=== PATIENT | male | born 1970 | race Caucasian/White ===

== ENCOUNTER 2018-08-10 19:49 | Emergency (ER) | payer BC ==
[2018-08-10 20:05] VITALS: BP 174/100
[2018-08-10] MEDS ORDERED: Azithromycin TAB* 250 MG PO ONE (20:40)
--- NOTE | 2018-08-10 20:45 | UC ---
Throat Pain/Nasal Aidan HPI - HPI Summary HPI Summary: Patient has had left sinus pressure that has occurred over the last 36 hours. it is burning and pain behind the eye, lots of post nasal drip - History of Current Complaint Chief Complaint: UCRespiratory Stated Complaint: SINUS COMPLAINT Time Seen by Provider: 08/10/18 20:03 Hx Obtained From: Patient Onset/Duration: Sudden Onset Severity: Mild Pain Intensity: 3 Associated Signs & Symptoms: Positive: Dysphagia, Sinus Discomfort, Nasal Discharge - Allergies/Home Medications Allergies/Adverse Reactions: Allergies Allergy/AdvReac Type Severity Reaction Status Date / Time Penicillins Allergy Unknown Verified 08/10/18 20:06 Reaction Details Home Medications: Home Medications D-Methorphan/PE/Acetaminophen [Day Time Cold-Flu Liquid] 355 ml PO DAILY [History Confirmed 08/10/18] Rabeprazole Sodium [Aciphex Sprinkle] 10 mg PO DAILY 08/10/18 [History Confirmed 08/10/18] amLODIPine TAB* [Norvasc 5 mg TAB*] 5 mg PO DAILY 08/10/18 [History Confirmed ] PMH/Surg Hx/FS Hx/Imm Hx Previously Healthy: Yes - Surgical History Surgical History: Yes Surgery Procedure, Year, and Place: shoulder surgery 2016 - Family History Known Family History: Positive: Hypertension - Social History Alcohol Use: None Substance Use Type: None Smoking Status (MU): Never Smoked Tobacco Review of Systems All Other Systems Reviewed And Are Negative: Yes Constitutional: Positive: Negative Skin: Positive: Negative Eyes: Positive: Negative ENT: Positive: Sore Throat, Ear Ache, Nasal Discharge, Sinus Congestion, Sinus Pain/Tenderness Respiratory: Positive: Cough Cardiovascular: Positive: Negative Gastrointestinal: Positive: Negative Genitourinary: Positive: Negative Motor: Positive: Negative Neurovascular: Positive: Negative Musculoskeletal: Positive: Negative Neurological: Positive: Headache Psychological: Positive: Negative Is Patient Immunocompromised?: No Physical Exam Triage Information Reviewed: Yes Appearance: Well-Nourished, Ill-Appearing, Pain Distress Vital Signs: Initial Vital Signs Temp 98.6 F 08/10/18 20:02 Pulse 102 08/10/18 20:02 Resp 16 08/10/18 20:02 BP 174/100 08/10/18 20:02 Pulse Ox 98 08/10/18 20:02 Vital Signs Reviewed: Yes Eye Exam: Normal ENT: Positive: Pharyngeal erythema - with PND, Nasal congestion, TM red Dental Exam: Normal Neck exam: Normal Respiratory Exam: Normal Respiratory: Positive: Chest non-tender, Lungs clear, Normal breath sounds Cardiovascular Exam: Normal Cardiovascular: Positive: RRR, No Murmur, Pulses Normal Abdominal Exam: Normal Abdomen Description: Positive: Nontender, No Organomegaly, Soft Musculoskeletal Exam: Normal Neurological Exam: Normal Psychological Exam: Normal Skin Exam: Normal Throat Pain/Nasal Course/Dx - Course Course Of Treatment: hx obtained,e victorinam performed ,meds reviewed, treated for sinusitis - Differential Dx/Diagnosis Provider Diagnosis: Frontal sinusitis Discharge - Sign-Out/Discharge Documenting (check all that apply): Patient Departure All imaging exams completed and their final reports reviewed: No Studies - Discharge Plan Condition: Stable Disposition: HOME Prescriptions: Azithromycin TAB* [Zithromax TAB (Z-ESTELLE) 250 mg #6 tabs] 250 mg PO DAILY #4 tab predniSONE [Prednisone 20 MG TAB] 40 mg PO DAILY #10 tablet Patient Education Materials: Sinusitis (ED) Referrals: No Primary Care Phys,NOPCP [Primary Care Provider] - Additional Instructions: 1. take the medication as prescribed 2. Warm compresses to the sinus area 3. Ibuprofen for pain and fever 4. Follow up if not improving in a week. - Billing Disposition and Condition Condition: STABLE Disposition: Home - Attestation Statements Provider Attestation: Per institutional requirements, I have reviewed the chart, however, I was not consulted specifically or made aware of this patient by the midlevel provider. I did not personally evaluate, interact with , or disposition this patient.
== END 2018-08-10 20:52 | disposition home or self-care (01) ==
LOC: UCCORT 19:49
DX: J32.1 Chronic frontal sinusitis (principal); Z88.0 Allergy status to penicillin
CPT/HCPCS: 99202; A9270-GY; G0463

== ENCOUNTER 2018-12-26 19:16 | Emergency (ER) | payer BC ==
[2018-12-26 19:38] VITALS: BP 158/88
--- NOTE | 2018-12-26 20:08 | ED ---
Throat Pain/Nasal Congestion - HPI Summary HPI Summary: 48 yr old male with the complaint of runny nose, post nasal drip, sinus pressure , sore throat and cough. He has been ill for four days. He was exposed to dust at an automotive garage, and feels that this caused his sinus infection. He has no other complaints. - History of Current Complaint Chief Complaint: UCRespiratory Time Seen by Provider: 12/26/18 20:00 - Allergies/Home Medications Allergies/Adverse Reactions: Allergies Allergy/AdvReac Type Severity Reaction Status Date / Time Penicillins Allergy Unknown Verified 12/26/18 19:34 Reaction Details Home Medications: Home Medications Ibs Med 1 tab DAILY 12/26/18 [History Confirmed 12/26/18] PMH/Surg Hx/FS Hx/Imm Hx Cardiovascular History: Reports: Hx Hypertension - Surgical History Surgery Procedure, Year, and Place: shoulder surgery 2016 Infectious Disease History: No Infectious Disease History: Denies: Traveled Outside the [place] in Last 30 Days - Family History Known Family History: Positive: Hypertension - Social History Occupation: Employed Full-time Alcohol Use: None Substance Use Type: Reports: None Smoking Status (MU): Never Smoked Tobacco Review of Systems Negative: Fever, Chills Positive: Nasal Discharge Positive: Cough All Other Systems Reviewed And Are Negative: Yes Physical Exam Triage Information Reviewed: Yes Vital Signs On Initial Exam: Initial Vitals Temp Pulse Resp BP Pulse Ox 99.2 F 108 18 158/88 98 12/26/18 19:35 12/26/18 19:35 12/26/18 19:35 12/26/18 19:35 12/26/18 19:35 Vital Signs Reviewed: Yes Appearance: Positive: Well-Appearing, No Pain Distress Skin: Positive: Warm, Skin Color Reflects Adequate Perfusion Head/Face: Positive: Normal Head/Face Inspection Eyes: Positive: EOMI, NAEL ENT: Positive: Nasal congestion, Nasal drainage, TMs normal, Sinus tenderness. Negative: Pharyngeal erythema Neck: Positive: Nontender Respiratory/Lung Sounds: Positive: Clear to Auscultation, Breath Sounds Present Cardiovascular: Positive: RRR. Negative: Murmur Abdomen Description: Negative: Distended Musculoskeletal: Positive: Strength/ROM Intact Neurological: Positive: Sensory/Motor Intact, Alert, Oriented to Person Place, Time, CN Intact II-III, Normal Gait, Speech Normal Psychiatric: Positive: Normal - [place] Coma Scale Best Eye Response: 4 - Spontaneous Best Motor Response: 6 - Obeys Commands Best Verbal Response: 5 - Oriented Coma Scale Total: 15 Diagnostics - Vital Signs Vital Signs Temp Pulse Resp BP Pulse Ox 12/26/18 19:35 99.2 F 108 18 158/88 98 - Laboratory Lab Statement: Any lab studies that have been ordered have been reviewed, and results considered in the medical decision making process. EENT Course/Dx - Course Course Of Treatment: sinusitis, FU with PMD for Bp check. - Diagnoses Provider Diagnoses: Sinusitis, Hypertension Discharge - Sign-Out/Discharge Documenting (check all that apply): Patient Departure All imaging exams completed and their final reports reviewed: No Studies - Discharge Plan Condition: Good Disposition: HOME Prescriptions: Albuterol HFA INHALER* [Ventolin HFA Inhaler*] 1 - 2 puff INH Q6H PRN #1 mdi PRN Reason: Cough Benzonatate CAP* [Tessalon 100 MG CAP*] 100 mg PO TID PRN #14 cap PRN Reason: Cough Doxycycline Monohydrate 100 mg PO BID #20 capsule Patient Education Materials: Sinusitis (ED), Acute Bronchitis (ED), Hypertension (ED) Referrals: Megan Morales PA [Primary Care Provider] - 2 Days - Billing Disposition and Condition Condition: GOOD Disposition: Home
== END 2018-12-26 20:13 | disposition home or self-care (01) ==
LOC: UCCORT 19:16
DX: J32.9 Chronic sinusitis, unspecified (principal); I10 Essential (primary) hypertension; R05 Cough; Z88.0 Allergy status to penicillin
CPT/HCPCS: 99212; G0463